=== PATIENT | female | born 2000 | race Caucasian/White ===

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

== ENCOUNTER 2020-01-07 11:13 | Emergency (ER) | payer OTHER ==
[2020-01-07 11:51] VITALS: BP 117/82
--- NOTE | 2020-01-07 11:59 | UC ---
Skin Complaint HPI - HPI Summary HPI Summary: c/o red, raised, circular area on upper L arm that she noticed 1 week ago. - History of Current Complaint Chief Complaint: UCSkin Time Seen by Provider: 01/07/20 11:54 Stated Complaint: SKIN CONCERN LEFT ARM Hx Obtained From: Patient Hx Last Menstrual Period: 12/29/19 ?: No Onset/Duration: Sudden Onset, Lasting Days Skin Exposure Onset/Duration: Days Ago Timing: Constant Onset Severity: Mild Current Severity: Mild Pain Intensity: 0 Location: Discrete Character: Redness, Raised Associated Signs & Symptoms: Positive: Rash - Allergy/Home Medications Allergies/Adverse Reactions: Allergies Allergy/AdvReac Type Severity Reaction Status Date / Time No Known Allergies Allergy Verified 01/07/20 11:45 Home Medications: Home Medications Norethindr/Eth Estradiol(Nf) [Lo Loestrin Fe (NF)] 1 tab PO DAILY 12/12/17 [ History Confirmed 01/07/20] Cetirizine HCl [Zyrtec] 10 mg PO DAILY PRN 01/02/19 [History Confirmed 01/07/20] Acetaminophen [Acetaminophen Extra Strength] 1,000 mg PO Q6H PRN 01/07/20 [ History Confirmed 01/07/20] Fluconazole 150 MG (NF) [Diflucan 150 mg (NF)] 150 mg PO ONCE #1 tab 01/07/20 [ Rx] Ketoconazole 2 % CREAM (NF) [Nizoral 2% CREAM (NF)] 1 applic TOPICAL BID #1 tube 01/07/20 [Rx] Spironolactone TAB* [Aldactone TAB*] 25 mg PO DAILY 01/07/20 [History Confirmed 01/07/20] PMH/Surg Hx/FS Hx/Imm Hx Previously Healthy: Yes - Surgical History Surgical History: Yes Surgery Procedure, Year, and Place: labrum tear R hip - Family History Known Family History: Negative: Seizure Disorder - Social History Alcohol Use: Occasionally Substance Use Type: None Smoking Status (MU): Never Smoked Tobacco Review of Systems All Other Systems Reviewed And Are Negative: Yes Skin: Positive: Rash Is Patient Immunocompromised?: No Physical Exam Triage Information Reviewed: Yes Appearance: Well-Appearing, No Pain Distress, Well-Nourished Vital Signs: Initial Vital Signs Temp 97.7 F 01/07/20 11:47 Pulse 96 01/07/20 11:47 Resp 14 01/07/20 11:47 BP 117/82 01/07/20 11:47 Pulse Ox 97 01/07/20 11:47 Vital Signs Reviewed: Yes Eye Exam: Normal ENT Exam: Normal Dental Exam: Normal Neck exam: Normal Respiratory Exam: Normal Respiratory: Positive: Chest non-tender, Lungs clear, Normal breath sounds Cardiovascular Exam: Normal Cardiovascular: Positive: RRR, No Murmur, Pulses Normal Abdominal Exam: Normal Bowel Sounds: Positive: Present Musculoskeletal Exam: Normal Neurological Exam: Normal Psychological Exam: Normal Skin: Positive: Rashes - left upper arm Course/Dx - Course Course Of Treatment: hx obtained, exam performed ,meds reviewed, treated for ringworm - Differential Diagnoses - Skin Complaint Differential Diagnoses: Tinea - Diagnoses Provider Diagnosis: Ringworm of body Discharge ED - Sign-Out/Discharge Documenting (check all that apply): Patient Departure All imaging exams completed and their final reports reviewed: No Studies - Discharge Plan Condition: Stable Disposition: HOME Prescriptions: Fluconazole 150 MG (NF) [Diflucan 150 mg (NF)] 150 mg PO ONCE #1 tab Ketoconazole 2 % CREAM (NF) [Nizoral 2% CREAM (NF)] 1 applic TOPICAL BID #1 tube Patient Education Materials: Skin Yeast Infection (ED) Referrals: No Primary Care Phys,NOPCP [Primary Care Provider] - Additional Instructions: 1. Use the pill today 2. apply the cream twice a day for 2 weeks, take a week off ans start again as needed. 3. Use coconut oil in between applications 4. Follow up if not improving - Billing Disposition and Condition Condition: STABLE Disposition: Home
== END 2020-01-07 12:14 | disposition home or self-care (01) ==
LOC: UCCORT 11:13
DX: B35.4 Tinea corporis (principal)
CPT/HCPCS: 99212; G0463